=== PATIENT | female | born 1945 | race Two or more races ===

== ENCOUNTER 2022-04-19 10:55 | Outpatient (CLI) | payer OTHER ==
[~2022-04-19 10:55] MED LIST: ATENOLOL25 MG; DIOVAN40 MG; PLAVIX75 MG
== END 2022-04-19 11:00 | disposition home or self-care (01) ==
LOC: SONOGRAMA 10:55
PROVIDERS: ATTEND Pathology Anatomic Pathology & Clinical Pathology
DX: E04.1 Nontoxic single thyroid nodule (principal); D34 Benign neoplasm of thyroid gland; E04.9 Nontoxic goiter, unspecified; E07.9 Disorder of thyroid, unspecified

== ENCOUNTER 2022-04-20 07:35 | Outpatient (CLI) | payer OTHER | END 2022-04-20 07:38 | disposition home or self-care (01) | LOC: RX STUDY 07:35 | PROVIDERS: ATTEND Otolaryngology | DX: R13.13 Dysphagia, pharyngeal phase (principal) ==